=== PATIENT | female | born 1985 | race Hispanic/Latino ===

== ENCOUNTER 2023-06-17 14:08 | Emergency (ER) | payer OTHER ==
[~2023-06-17] VITALS: Ht 160 cm; Wt 90.7 kg
[2023-06-17] MEDS ORDERED: MORPHINE 4 MG SYG IM ONE (15:00)
[2023-06-17] MEDS: ONDANSETRON 4MG INJ IVP ONE (15:20)
[2023-06-17] MEDS: MORPHINE 4 MG SYG IVP ONE (15:30)
[2023-06-17] MEDS ORDERED: IBUP-2070 PO (17:01)
[2023-06-17] MEDS ORDERED: HYDR-4060 PO (17:01)
[2023-06-17 17:28] VITALS: BP 118/68; PULSE 68; RESP 16; O2SAT 98
== END 2023-06-17 17:39 | disposition home or self-care (01) ==
LOC: EDH 14:08
DX: M51.9 Unspecified thoracic, thoracolumbar and lumbosacral intervertebral disc disorder (principal); M54.40 Lumbago with sciatica, unspecified side
CPT/HCPCS: 99285; 96374; 72131; 96375; J2405; J2270